=== PATIENT | female | born 1950 | race Caucasian/White ===

== ENCOUNTER 2021-04-11 13:05 | Day surgery (SDC) | payer MEDICARE ==
[~2021-04-11] VITALS: Ht 157.5 cm; Wt 71.4 kg
[~2021-04-11 13:05] MED LIST: ALPR.5 PO; CIPR500 PO; CITA20 PO; CYCL10 PO; DOCU100 PO; FISH1000 PO; HYDACE5 PO; LAVAP17G PO; PHENA200 PO; SIMV10 PO
[2021-04-11] MEDS ORDERED: Norco 5-325 Ta1 EACH PO (13:51)
--- NOTE | 2021-04-11 15:12 | NUR ---
04/11/21 1512 Ora Robbins 61CC NACL FLUID DEFICIT FROM HYSTEROSCOPY. SURGEON AND ANESTHESIA AWARE.
== END 2021-04-11 16:00 | disposition home or self-care (01) ==
LOC: ORSCSDS 13:05
PROVIDERS: Obstetrics & Gynecology
PROC: 0UDB8ZX Extraction of Endometrium, Via Natural or Artificial Opening Endoscopic, Diagnostic (ICD-10-PCS; principal; 2021-04-11 14:30)
DX: N85.8 Other specified noninflammatory disorders of uterus (principal); F41.8 Other specified anxiety disorders; Z79.899 Other long term (current) drug therapy
CPT/HCPCS: 88305; J1100; J1885; J2250; J2405; J2704; J3010

== ENCOUNTER 2024-02-28 17:25 | Emergency (ER) | payer MEDICARE ==
[~2024-02-28] VITALS: Ht 157.5 cm; Wt 71.7 kg
[~2024-02-28 17:25] MED LIST changes: +Norco 5-325 Ta1 EACH PO
[2024-02-28] MEDS ORDERED: Morphine Sulfate 4 MG/1 ML Injection IV ONE ×3 (17:40→19:40)
[2024-02-28 21:00] VITALS: BP 148/99
[2024-02-28] MEDS ORDERED: ACET500 PO (21:06)
[2024-02-28] MEDS ORDERED: Percocet 5-3251 EACH PO (21:06)
[2024-02-28] MEDS ORDERED: RX Prepack 6 Tabs Oxycodone 5mg UD ONE (22:00)
== END 2024-02-28 22:16 | disposition home or self-care (01) ==
LOC: ER 17:25
DX: S49.002A Unspecified physeal fracture of upper end of humerus, left arm, initial encounter for closed fracture (principal); W18.30XA Fall on same level, unspecified, initial encounter; Z88.8 Allergy status to other drugs, medicaments and biological substances; Z88.2 Allergy status to sulfonamides; Z79.899 Other long term (current) drug therapy; I10 Essential (primary) hypertension; E78.5 Hyperlipidemia, unspecified
CPT/HCPCS: 70450; 72125; 73030; 73060; 73070; 96374; 96376; 99284-25; A9270; J2270; L0160